=== PATIENT | female | born 1980 | race Caucasian/White ===

== ENCOUNTER 2017-06-23 16:49 | Emergency (ER) | payer SELFPAY ==
[~2017-06-23] VITALS: Ht 154.9 cm; Wt 53.2 kg
[~2017-06-23 16:49] MED LIST: IBUP800T23 PO
[2017-06-23 16:58] VITALS: BP 128/84; PULSE 84; RESP 17; TEMP 97.9; O2SAT 96
--- NOTE | 2017-06-23 17:21 | PD ---
HPI Chief Complaint: Psychiatric Symptoms Time Seen by Provider: 17:08 Travel History International Travel<30 days: No Contact w/Intl Traveler<30days: No Traveled to known affect area: No History of Present Illness HPI This Is a 36-year-old female who presents under Sainz act initiated by the Police Department. According to her paperwork the patient's family members trying to roll the patient to rehabilitation for some type of drug addiction problem. The patient told the family that she would "rather than go to rehabilitation or work." For this reason police were called and she was placed under Sainz act. The patient disputes the Sainz act ascription of this scenario. She reports that her father is an alcoholic and his father called the police while he was drunk. She denies any issue with any sort of substances. She denies any suicidal thoughts. She does endorse depression. Her only medical complaint at this time is of a infection on the left calf. She noticed a small skin bump there for 5 days ago. She poked it with a razor. She's had progressive redness and tenderness in the area since then. She denies any fevers or chills. She has no other complaints. [facility] Past Medical History Medical History: Denies Significant Hx Tetanus Vaccination: Unknown ?: Not Past Surgical History Surgical History: No Previous Surgery Social History Alcohol Use: Yes Tobacco Use: Yes Substance Use: No Allergies-Medications (Allergen,Severity, Reaction): Coded Allergies: No Known Allergies (Unverified , 06/23/17) Reported Meds & Prescriptions Reported Meds & Active Scripts Active Keflex (Cephalexin) 500 Mg Capsule 500 Mg PO Q8H 10 Days Bactrim DS (Sulfamethoxazole-Trimethoprim) 800-160 Mg Tab 1 Tab PO BID Review of Systems Except as stated in HPI: all other systems reviewed are Neg Physical Exam Narrative GENERAL: Well-developed well-nourished female in no acute distress SKIN: Warm and dry. There is an area of erythema and induration on the medial left calf. There is some central excoriation, purulent/bloody drainage from palpation. No proximal streaking, no fluctuance. HEAD: Atraumatic. Normocephalic. EYES: Pupils equal and round. No scleral icterus. No injection or drainage. ENT: No nasal bleeding or discharge. Mucous membranes pink and moist. NECK: Trachea midline. No JVD. CARDIOVASCULAR: Regular rate and rhythm. No murmur appreciated. RESPIRATORY: No accessory muscle use. Clear to auscultation. Breath sounds equal bilaterally. GASTROINTESTINAL: Abdomen soft, non-tender, nondistended. Hepatic and splenic margins not palpable. MUSCULOSKELETAL: No obvious deformities. No clubbing. No cyanosis. No edema. NEUROLOGICAL: Awake and alert. No obvious cranial nerve deficits. Motor grossly within normal limits. Normal speech. PSYCHIATRIC: Appropriate mood and affect; insight and judgment normal. Data Data Last Documented VS Vital Signs Date Time Temp Pulse Resp B/P Pulse Ox O2 Delivery O2 Flow Rate FiO2 06/23/17 16:58 97.9 84 17 128/84 96 Orders Diet Regular Basic (06/23/17 Dinner) Sulfamet-Trimeth Ds 800-160 Mg (Bactrim (06/23/17 17:30) Cephalexin (Keflex) (06/23/17 17:30) Complete Blood Count With Diff (06/23/17 17:16) Comprehensive Metabolic Panel (06/23/17 17:16) Ed Urine Pregnancytest Poc (06/23/17 17:16) Psych Screen (06/23/17 17:16) Drug Screen, Random Urine (06/23/17 17:16) Alcohol (Ethanol) (06/23/17 17:16) Wound Culture And Gram Stain (06/23/17 17:16) Salicylates (Aspirin) (06/23/17 18:24) Tylenol (Acetaminophen) (06/23/17 18:24) Labs Laboratory Tests Test 06/23/17 06/23/17 17:00 18:34 White Blood Count 8.7 TH/MM3 Red Blood Count 4.51 MIL/MM3 Hemoglobin 13.7 GM/DL Hematocrit 39.9 % Mean Corpuscular Volume 88.4 FL Mean Corpuscular Hemoglobin 30.4 PG Mean Corpuscular Hemoglobin 34.4 % Concent Red Cell Distribution Width 14.3 % Platelet Count 250 TH/MM3 Mean Platelet Volume 7.5 FL Neutrophils (%) (Auto) 55.5 % Lymphocytes (%) (Auto) 27.1 % Monocytes (%) (Auto) 13.0 % Eosinophils (%) (Auto) 3.9 % Basophils (%) (Auto) 0.5 % Neutrophils # (Auto) 4.8 TH/MM3 Lymphocytes # (Auto) 2.4 TH/MM3 Monocytes # (Auto) 1.1 TH/MM3 Eosinophils # (Auto) 0.3 TH/MM3 Basophils # (Auto) 0.0 TH/MM3 CBC Comment DIFF FINAL Differential Comment Sodium Level 138 MEQ/L Potassium Level 4.0 MEQ/L Chloride Level 105 MEQ/L Carbon Dioxide Level 26.3 MEQ/L Anion Gap 7 MEQ/L Blood Urea Nitrogen 9 MG/DL Creatinine 0.66 MG/DL Estimat Glomerular Filtration 103 ML/MIN Rate Random Glucose 112 MG/DL Calcium Level 8.6 MG/DL Total Bilirubin 0.2 MG/DL Aspartate Amino Transf 392 U/L (AST/SGOT) Alanine Aminotransferase 548 U/L (ALT/SGPT) Alkaline Phosphatase 143 U/L Total Protein 8.0 GM/DL Albumin 3.2 GM/DL Ethyl Alcohol Level LESS THAN 3 MG/DL Salicylates Level LESS THAN 1.7 MG/DL Acetaminophen Level LESS THAN 2.0 MCG/ML MDM Medical Decision Making Medical Screen Exam Complete: Yes Emergency Medical Condition: Yes Medical Record Reviewed: Yes Differential Diagnosis Cellulitis, abscess, necrotizing fasciitis, erysipelas Substance induced mood disorder, major depressive disorder, acute psychosis, adjustment reaction, depressive disorder not otherwise specified Narrative Course 36-year-old female presents under Sainz act for psychiatric evaluation. On examination she does have an area of cellulitis to the medial left calf. A wound culture has been performed. Pending would culture the patient will be given Bactrim and Keflex. She will be given antibiotics during her hospitalization and she will also be given prescriptions for Bactrim and Keflex for when she is discharged by psychiatry. Mental health screening discussed with the patient. Psychiatric screen ordered. The patient's lab work is been reviewed and she does have elevated liver enzymes. Therefore Tylenol was been ordered and was negative. She is encouraged to follow-up in regards to the elevated liver enzymes as outpatient for further outpatient testing. Diagnosis Primary Impression: Medical clearance for psychiatric admission Additional Impressions: Cellulitis Qualified Code: L03.116 - Cellulitis of left lower extremity Elevated liver enzymes Scripts Cephalexin (Keflex)500 Mg [id number] Mg PO Q8H 10 Days Ref 0 Prov:Alex Carter MD 06/23/17 Sulfamethoxazole-Trimethoprim (Bactrim DS)800-160 Mg Tab1 Tab PO BID #20 TAB Ref 0 Prov:Soonarothai,Rewadee MD 06/23/17 Jonny Hernandez Jun 23, 2017 17:21
[2017-06-23] MEDS ORDERED: CEPH-460 PO (17:22)
[2017-06-23] MEDS ORDERED: BACT800T5 PO (17:22)
[2017-06-23 17:53] LABS: AUTOMATED NEUTROPHIL # 4.8 TH/MM3 (1.8-7.7); BASOPHIL % 0.5 % (0.0-2.0); EOSINOPHIL # 0.3 TH/MM3 (0-0.4); EOSINOPHIL % 3.9 % (0.0-4.0); HEMATOCRIT 39.9 % (35.0-46.0); HEMO FLAGS DIFF FINAL; LYMPH % 27.1 % (9.0-44.0); LYMPHOCYTE # 2.4 TH/MM3 (1.0-4.8); MEAN CELL VOLUME 88.4 FL (80.0-100.0); MEAN CORPUSCULAR HEMOGLOBIN 30.4 PG (27.0-34.0); MEAN CORPUSCULAR HGB CONC 34.4 % (32.0-36.0); NEUT % 55.5 % (16.0-70.0); PLATELET COUNT 250 TH/MM3 (150-450); RED BLOOD COUNT 4.51 MIL/MM3 (4.00-5.30); RED CELL DISTRIBUTION WIDTH 14.3 % (11.6-17.2); WHITE BLOOD COUNT 8.7 TH/MM3 (4.0-11.0)
[2017-06-23 18:12] LABS: ALT (GPT) 548 U/L (10-53); ANION GAP 7 MEQ/L (5-15); AST (GOT) 392 U/L (15-37); BICARBONATE 26.3 MEQ/L (21.0-32.0); BLOOD UREA NITROGEN 9 MG/DL (7-18); CHLORIDE 105 MEQ/L (98-107); GLOMERULAR FILTRATION RATE 103 ML/MIN (>89); SODIUM (NA) 138 MEQ/L (136-145)
[2017-06-23 18:14] LABS: ALKALINE PHOSPHATASE 143 U/L (45-117); TOTAL BILIRUBIN ADULT 0.2 MG/DL (0.2-1.0)
[2017-06-23 20:55] VITALS: BP 116/67; PULSE 75; RESP 18; O2SAT 96
[2017-06-23] MEDS: SULFAMETHOXAZOLE-TRIMETHOPRIM DS 800-160 MG TAB PO SCH ×2 (21:00→21:48)
[2017-06-23 21:40] LABS: AMPHETAMINE, URINE POS (NEG); BARBITURATES, URINE NEG (NEG); COCAINE, URINE POS (NEG)
[2017-06-23] MEDS: CEPHALEXIN MONOHYDRATE 500 MG CAP PO SCH (21:48)
[2017-06-23 22:14] VITALS: BP 122/71; PULSE 81; RESP 17; O2SAT 100
[2017-06-24 02:21] VITALS: BP 106/55; PULSE 75; RESP 18; O2SAT 96
[2017-06-24 06:27] VITALS: BP 109/64; PULSE 71; RESP 18; O2SAT 98
[2017-06-24] MEDS ORDERED: CLIN1CAP6 PO (09:06)
[2017-06-24 10:09] VITALS: BP 109/64; TEMP 98.2
--- NOTE | 2017-06-24 11:39 | PD.PSY.CON ---
Provisional Diagnosis Admission Date [place] I. Polysubstance dependence, including opiates, amphetamines, cocaine, substance induced mood disorder [place] II. Unspecified personality disorder, rule out borderline [place] III. No significant medical history History of Present Illness Service Psychiatry Consult Requested By Primary Care Physician No Primary Care Physician HPI The patient is a 36-year-old woman, domiciled with her father, employed, single, with psychiatric history of depression, no psychiatric hospitalizations, history of self cutting behavior without SI, polysubstance dependence, including cannabis, cocaine, amphetamines, opiates, alcohol, no significant medical history, who presents under Sainz act initiated by the Police Department. According to her paperwork the patient's family members trying to roll the patient to rehabilitation for some type of drug addiction problem. The patient told the family that she would "rather than go to rehabilitation or work." For this reason police were called and she was placed under Sainz act. The patient disputes the Sainz act ascription of this scenario. She reports that her father is an alcoholic and his father called the police while he was drunk and he was not aware of what he was doing. She reports the use of marijuana, alcohol occasionally, when confronted about toxicology positive for opiates amphetamines and cocaine, patient declined to talk about it. She denies visual and auditory hallucinations. She does endorse depression. She denies psychotic symptoms, she denies delonte. He is oriented 3, no attention deficit, no signs of withdrawal of intoxication at this moment. Review of Systems Constitutional: DENIES: Diaphoretic episodes, Fatigue, Fever, Weight gain, Weight loss, Chills, Dizziness, Change in appetite, Night Sweats Endocrine: DENIES: Abnorml menstrual pattern, Heat/cold intolerance, Polydipsia , Polyuria, Polyphagia Eyes: DENIES: Blurred vision, Diplopia, Eye inflammation, Eye pain, Vision loss , Photosensitivity, Double Vision Ears, nose, mouth, throat: DENIES: Tinnitus, Hearing loss, Vertigo, Nasal discharge, Oral lesions, Throat pain, Hoarseness, Ear Pain, Running Nose, Epistaxis, Sinus Pain, Toothache, Odynophagia Respiratory: DENIES: Apneas, Cough, Snoring, Wheezing, Hemoptysis, Sputum production, Shortness of breath Cardiovascular: DENIES: Chest pain, Palpitations, Syncope, Dyspnea on Exertion , PND, Lower Extremity Edema, Orthopnea, Claudication Gastrointestinal: DENIES: Abdominal pain, Black stools, Bloody stools, Constipation, Diarrhea, Nausea, Vomiting, Difficulty Swallowing, Anorexia Genitourinary: DENIES: Abnormal vaginal bleeding, Dysmenorrhea, Dyspareunia, Sexual dysfunction, Urinary frequency, Urinary incontinence, Urgency, Hematuria , Dysuria, Nocturia, Vaginal discharge Integumentary: DENIES: Abnormal pigmentation, Pruritus, Rash, Nail changes, Breast masses, Breast skin changes, Nipple discharge Hematologic/lymphatic: DENIES: Bruising, Lymphadenopathy Immunologic/allergic: DENIES: Eczema, Urticaria Neurologic: DENIES: Abnormal gait, Headache, Localized weakness, Paresthesias, Seizures, Speech Problems, Tremor, Poor Balance Psychiatric: DENIES: Anxiety, Confusion, Mood changes, Depression, Hallucinations, Agitation, Suicidal Ideation, Homicidal Ideation, Delusions Past Family Social History Coded Allergies: Keflex (Unverified Adverse Reaction, Unknown, 06/23/17) Active Scripts Clindamycin 300 Mg [id number] Mg PO Q6H #40 CAP Prov:Indira Au 06/24/17 Discontinued Scripts Cephalexin (Keflex)500 Mg [id number] Mg PO Q8H 10 Days Ref 0 Prov:Alex Carter MD 06/23/17 Sulfamethoxazole-Trimethoprim (Bactrim DS)800-160 Mg Tab1 Tab PO BID #20 TAB Ref 0 Prov:Alex Carter MD 06/23/17 Family History Her father is alcoholic Social History Patient was born in [place], she was raised and she lives in [place] with her father, she she is employed, single, highest level of education is college Patient's Strengths (min. 2) Verbal communication Physical Exam Vital Signs Vital Signs Date Time Temp Pulse Resp B/P Pulse Ox O2 Delivery O2 Flow Rate FiO2 06/24/17 10:09 98.2 78 18 109/64 06/24/17 06:27 98 Room Air Lab Results Labs Laboratory Tests Test 06/23/17 06/23/17 17:00 18:34 White Blood Count 8.7 TH/MM3 Red Blood Count 4.51 MIL/MM3 Hemoglobin 13.7 GM/DL Hematocrit 39.9 % Mean Corpuscular Volume 88.4 FL Mean Corpuscular Hemoglobin 30.4 PG Mean Corpuscular Hemoglobin 34.4 % Concent Red Cell Distribution Width 14.3 % Platelet Count 250 TH/MM3 Mean Platelet Volume 7.5 FL Neutrophils (%) (Auto) 55.5 % Lymphocytes (%) (Auto) 27.1 % Monocytes (%) (Auto) 13.0 % Eosinophils (%) (Auto) 3.9 % Basophils (%) (Auto) 0.5 % Neutrophils # (Auto) 4.8 TH/MM3 Lymphocytes # (Auto) 2.4 TH/MM3 Monocytes # (Auto) 1.1 TH/MM3 Eosinophils # (Auto) 0.3 TH/MM3 Basophils # (Auto) 0.0 TH/MM3 CBC Comment DIFF FINAL Differential Comment Sodium Level 138 MEQ/L Potassium Level 4.0 MEQ/L Chloride Level 105 MEQ/L Carbon Dioxide Level 26.3 MEQ/L Anion Gap 7 MEQ/L Blood Urea Nitrogen 9 MG/DL Creatinine 0.66 MG/DL Estimat Glomerular Filtration 103 ML/MIN Rate Random Glucose 112 MG/DL Calcium Level 8.6 MG/DL Total Bilirubin 0.2 MG/DL Aspartate Amino Transf 392 U/L (AST/SGOT) Alanine Aminotransferase 548 U/L (ALT/SGPT) Alkaline Phosphatase 143 U/L Total Protein 8.0 GM/DL Albumin 3.2 GM/DL Ethyl Alcohol Level LESS THAN 3 MG/DL Salicylates Level LESS THAN 1.7 MG/DL Acetaminophen Level LESS THAN 2.0 MCG/ML Mental Status Examination Appearance young woman, [facility], fair hygiene, multiple tattoos, superficially cooperative, irritable Speech: Unremarkable Orientation: x3 Memory: Unremarkable Thought Process: Logical, Goal Directed Thought Content: Unremarkable Hallucination Type: None Attention and Concentration: Good Suicidal Ideation: No Previous Suicide Attempts: No Homicidal Ideation: No Previous Homicide Attempts: No Judgment: Impulsive Affect: Irritable Mood: Irritable Motor Activity: Normal gait Assessment & Plan Problem List: (1) Polysubstance dependence Assessment & Plan: At the moment of this evaluation the patient denies depressive symptoms, she denies anxiety, she denies delonte and psychosis. She denies suicidal and homicidal ideation, she denies visual and auditory hallucinations. Patient has an extensive history of polysubstance use, including opiates, marijuana, cocaine, alcohol, amphetamines. Patient seems to be in a pre-contemplation state of her addiction problem. Patient does not benefit of psychiatric admission at this moment. She would really benefit of a comprehensive rehabilitation program. Extensive psychoeducation, supportive motivation provided. Sainz act will be lifted. ICD Code: F19.20 Assessment & Plan Estimated LOS: Chau Antoine MD Jun 24, 2017 11:39
== END 2017-06-24 09:00 | disposition home or self-care (01) ==
LOC: NEDAMB 16:49 → NEPJ 06-24 09:00
DX: L03.116 Cellulitis of left lower limb (principal); R74.8 Abnormal levels of other serum enzymes; F32.9 Major depressive disorder, single episode, unspecified; Z79.899 Other long term (current) drug therapy; Z72.0 Tobacco use
CPT/HCPCS: 80053; 80307; 84703; 85025; 86403; 87070; 87186; 99284